=== PATIENT | male | born 1950 | race Caucasian/White ===

== ENCOUNTER 2020-01-18 01:25 | Outpatient (CLI) | payer MEDICARE, BC, SELFPAY ==
--- NOTE | 2020-01-18 14:06 | DI.CTLCSR_ITS ---
EXAM: CT CHEST LUNG CANCER SCREEN CLINICAL HISTORY: SCREENING FOR LUNG CA, CURRENT SMOKER, F17.210 TECHNIQUE: COMPARISON: No exams were available for comparison FINDINGS: CT examination of the chest was performed utilizing noncontrast low-dose lung cancer screening protoc . Images obtained through the upper abdomen show unremarkable appearance of visualized portions liver, spleen, pancreas, adrenals, and kidneys. No significant mediastinal or hilar adenopathy. Note is made of coronary artery calcification. The lungs are predominantly clear with apparent bilateral apical pleural based scarring. There is no significant pulmonary nodule. No pleural effusion or pleural-based mass. Tracheobronchial tree bina ears intact. IMPRESSION: No pulmonary nodule identified. Lung RADS Cat 1 - Negative: No nodules and definitely benign nodules Continue routine screening with LD CT in 12 months. RADIATION DOSE DELIVERED: 86.3mGy.cm Total DLP
== END 2020-01-18 01:45 ==
PROVIDERS: PCP Nurse Practitioner Family; Visit Provider Nurse Practitioner Family
DX: F17.210 Nicotine dependence, cigarettes, uncomplicated (principal)
CPT/HCPCS: G0297